=== PATIENT | female | born 1950 | race Two or more races ===

== ENCOUNTER → 2017-12-28 | Outpatient (CLI) | payer OTHER ==
[~2017-12-28] MED LIST: ASPI-1471 PO; ATOR-1 PO; ATOR40TA24 PO; ATOR40TA69 PO; CALC-734 PO; GLUC1TAB13 PO; METF500T4 PO; MULT-1121 PO; OMEG-36 PO; SULF-198 PO
== END ==
LOC: LAB 08:55
PROVIDERS: ATTEND Emergency Medicine
DX: E11.9 Type 2 diabetes mellitus without complications (principal)
CPT/HCPCS: 36415; 83036

== ENCOUNTER 2018-01-06 08:19 | Outpatient (RCR) | payer OTHER ==
[~2018-01-06 08:19] MED LIST changes: +BETA15OI20 TP
[2018-01-06 08:48] VITALS: BP 140/80
[2018-01-06 09:05] LABS: PLATELET COUNT, AUTOMATED 182 K/uL (150-450)
== END 2018-01-22 14:23 | disposition home or self-care (01) ==
LOC: SPU 08:19
PROVIDERS: ATTEND Internal Medicine
DX: C91.10 Chronic lymphocytic leukemia of B-cell type not having achieved remission (principal)
CPT/HCPCS: 36415; 82040; 82247; 82310; 82374; 82435; 82565; 82784; 82947; 83615; 84075; 84132; 84155; 84295; 84450; 84460; 84520; 85025

== ENCOUNTER 2018-05-17 10:19 | Outpatient (RCR) | payer OTHER ==
[2018-05-12 09:51] VITALS: BP 145/94
[2018-05-12 09:58] LABS: PLATELET COUNT, AUTOMATED 187 K/uL (150-450)
[2018-05-17 10:34] VITALS: BP 138/85
[2018-05-17] MEDS ORDERED: SIMV-54 PO (10:36)
--- NOTE | 2018-05-19 11:33 | [facility] ONCOLOGY NOTE ---
EVENT DATE: May 17, 2018 CHIEF COMPLAINT/REASON FOR VISIT Ms. Mancilla is a pleasant 67-year-old female with Stage 0 CLL with normal cytogenetics here for followup. HISTORY OF PRESENT ILLNESS Adilia returns. She was diagnosed with CLL in approximately 2014. FISH was done and showed normal cytogenetics. She continues to fell well with no significant fatigue. She has occasional episodes of shortness of breath that lasts a few seconds. These are rare and I am concerned that these are more related to a transient arrhythmia as opposed to anything to do with her CLL. No concerning lumps or bumps. No anemia, thrombocytopenia, renal failure, liver failure or any other issues. No indications for treatment. PAST MEDICAL/SURGICAL HISTORY 1. Type 2 diabetes. 2. CLL. FAMILY HISTORY Remarkable for liver failure in her father, diabetes in both parents, hypertension in her mother, breast cancer in her mother at a young age, as well as a distant family member with rectal cancer. REVIEW OF SYSTEMS CONSTITUTIONAL: No fevers, chills, weight change. HEENT: No headache or vision changes. CARDIOVASCULAR: No chest pain, dyspnea on exertion or edema. RESPIRATORY: No shortness of breath, wheeze, cough. GASTROINTESTINAL: No nausea, vomiting, diarrhea or constipation. GENITOURINARY: No dysuria or hematuria. MUSCULOSKELETAL: No weakness or joint pain. PSYCHIATRIC: No anxiety or depression. ENDOCRINE: No heat or cold intolerance. SKIN: No concerning lesions. LYMPHATIC: No concerning lumps or bumps. The remainder of the 14-point review of systems is otherwise negative. PHYSICAL EXAMINATION VITAL SIGNS: Blood pressure 138/85, pulse 63, respiratory rate 16, temperature 98.5 Fahrenheit, oxygen saturation 97% on room air. Weight 81.2 kg. Pain 0/10 , fatigue 0/10. GENERAL: Stable condition, resting comfortably in the chair. LYMPHATIC: No appreciable cervical, supraclavicular or axillary lymphadenopathy. CV: Regular rate and rhythm. LUNGS: Clear. ABDOMEN: Soft, nontender. No organomegaly or masses. EXTREMITIES: No clubbing, cyanosis or edema. SKIN: No concerning findings. The remainder of the physical exam is unremarkable. IMPRESSION AND PLAN Ms. Mccormick is a very pleasant 67-year-old female with the following: Chronic lymphocytic leukemia (CLL) Stage 0 with normal cytogenetics and FISH. No indication for treatment at this time. We discussed her labs, which show a slight increase in white count but no anemia or other indications for treatment. Her doubling time is still quite low. As such, it is very reasonable to watch her. She would like to be seen once a year with labs every six months and this is very reasonable. If she has any new issues, I am happy to see her sooner than originally planned. Billing: Return vitis level 4. Total time 30 minutes, counseling time 20. MTDD
== END 2018-05-21 09:52 | disposition home or self-care (01) ==
LOC: ONC 10:19
PROVIDERS: ATTEND Internal Medicine
DX: C91.10 Chronic lymphocytic leukemia of B-cell type not having achieved remission (principal)
CPT/HCPCS: 36415; 82040; 82247; 82310; 82374; 82435; 82565; 82784; 82947; 83615; 84075; 84132; 84155; 84295; 84450; 84460; 84520; 85025; 99212

== ENCOUNTER → 2018-06-03 | Outpatient (CLI) | payer OTHER ==
[~2018-06-03] MED LIST changes: +SIMV-54 PO
--- NOTE | 2018-06-04 08:39 | RADIOLOGY IMAGING REPORT ---
FACILITY: [facility] PATIENT NAME: JOYCE NEFF : [id number] MR: [id number] V: [id number] EXAM DATE: ORDERING PHYSICIAN: GREG TORRSE TECHNOLOGIST: Gissell Campuzano PROCEDURE:BILATERAL DIGITAL SCREENING MAMMOGRAM WITH CAD ASSISTED INTERPRETATION & 3D TOMOSYNTHESIS COMPARISON:Prior mammograms 05/20/17, 05/23/16. INDICATIONS:SCREENING FINDINGS: Small amount of fibroglandular tissue is seen throughout the breasts. The parenchymal pattern has remained stable allowing for difference in mammographic technique & patient positioning. There is no evidence of malignant appearing mass, malignant appearing calcifications or other secondary sign of malignancy in either breast. DIAGNOSTIC CATEGORY 1--NEGATIVE. RECOMMENDATIONS: ROUTINE MAMMOGRAM AND CLINICAL EVALUATION. IMPRESSION: BIRADS 1: Negative. No significant abnormality is seen. Dictated by: Kylie Johnson M.D. on 06/03/2018 at 15:22 Transcribed by: BRENDA on 06/03/2018 at 15:31 Approved by: Kylie Johnson M.D. on 06/04/2018 at 8:37 [facility]
== END ==
LOC: MAMO 01:19
PROVIDERS: ATTEND Emergency Medicine
DX: Z12.31 Encounter for screening mammogram for malignant neoplasm of breast (principal)
CPT/HCPCS: 77063; 77067

== ENCOUNTER → 2018-07-14 | Outpatient (CLI) | payer OTHER ==
[2018-07-14 09:42] LABS: LDL CHOLESTEROL 69 mg/dl
== END ==
LOC: LAB 09:13
PROVIDERS: ATTEND Emergency Medicine
DX: E11.9 Type 2 diabetes mellitus without complications (principal)
CPT/HCPCS: 36415; 82040; 82247; 82310; 82374; 82435; 82465; 82565; 82947; 83036; 83718; 84075; 84132; 84155; 84295; 84450; 84460; 84478; 84520

== ENCOUNTER → 2018-07-26 | Outpatient (CLI) | payer OTHER ==
[~2018-07-26] MED LIST changes: +PNEU0.5D3 IM
== END ==
LOC: LAB 09:09
PROVIDERS: ATTEND Emergency Medicine
DX: G62.9 Polyneuropathy, unspecified (principal)
CPT/HCPCS: 36415; 82607

== ENCOUNTER → 2018-08-04 | Outpatient (CLI) | payer OTHER ==
[~2018-08-04] VITALS: Ht 152.4 cm; Wt 80.7 kg
--- NOTE | 2018-08-04 16:27 | Medical Nutrition Therapy ---
Nutrition Anthropometrics Height (Inches): 60 (stated) Weight (Pounds): 178 (standing scale with shoes) BMI: 34.5 Darryn Nutrition Score: Darryn Nutrition Risk Score: Dietary Referral Nutrition Risk Factors: Nutrition Risk Comment: Nutrition/Food History Breakfast: egg/cheese, mcdaniel, fruit or dry cereal, cheese, fuit Lunch: sandwich, fruit Dinner: soup, chips, avocado, fruit, or veggies, meat, starch, fruit Nutritional Education Nutrition Education Topic: Diabetic Nutrition Learning Readiness: Interested Teaching Methods: Discussion, Handout, Demonstration Response to Teaching: Verbalize understanding Teaching Recipient: Patient Nutrition Counseling: Pt unsure if she is pre-diabetes or diabetes. Recommend pt discuss this with PCP. At A1c of 6.4, she is in good control however pt would like to maintain A1C within the prediabetes range. Pt provided 2 day intake record. Est pt is consuming ~ 2000 kcal/day which will maintain her wt but is not a wt loss level. Explained that studies have shown that wt loss and exercise will usually help lower A1`C. Asked pt if she was interested in a lower kcal meal plan that would help with wt loss. Pt stated she was. Reviewed glycemic response to CHO, food exchange group, CHO counting and plate method. Recommend pt keep CHO to 1c/meal or 30-45gm CHO to help with wt loss. Pt exercises 3X/wk. Encouraged pt to increase exercise to minimum of 150 minutes/wk. Invited pt to diabetic classes but pt declined at this time. Pt declined f/u session. Nutrition Monitoring & Eval RD Patient Assessment Time: [address] Assessment Type: RD Education Nutritional Comment: provided 60 minutes MNT for dx diabetes Copies To Copies to: GREG TORRES MD ; [place] Aug 04, 2018 16:27
== END ==
LOC: DIET 09:33
PROVIDERS: ATTEND Emergency Medicine
DX: Z71.3 Dietary counseling and surveillance (principal); Z68.34 Body mass index [BMI] 34.0-34.9, adult
CPT/HCPCS: 97802

== ENCOUNTER 2018-11-01 09:00 | Outpatient (RCR) | payer OTHER ==
[2018-11-01 09:19] LABS: PLATELET COUNT, AUTOMATED 184 K/uL (150-450)
[2018-11-01 09:57] VITALS: BP 127/86
== END 2018-11-15 15:42 | disposition home or self-care (01) ==
LOC: SPU 09:00
PROVIDERS: ATTEND Internal Medicine
DX: C91.10 Chronic lymphocytic leukemia of B-cell type not having achieved remission (principal)
CPT/HCPCS: 36415; 82040; 82247; 82310; 82374; 82435; 82565; 82784; 82947; 83615; 84075; 84132; 84155; 84295; 84450; 84460; 84520; 85025

== ENCOUNTER → 2019-01-24 | Outpatient (CLI) | payer OTHER | LOC: LAB 08:57 | PROVIDERS: ATTEND Emergency Medicine | DX: E11.9 Type 2 diabetes mellitus without complications (principal) | CPT/HCPCS: 36415; 83036 ==

== ENCOUNTER → 2019-06-15 | Outpatient (CLI) | payer OTHER ==
--- NOTE | 2019-06-15 14:05 | RADIOLOGY IMAGING REPORT ---
FACILITY: [facility] PATIENT NAME: JOYCE NEFF : [id number] MR: [id number] V: [id number] EXAM DATE: ORDERING PHYSICIAN: GREG TORRES TECHNOLOGIST: Betzy Ahumada PROCEDURE: BILATERAL DIGITAL SCREENING MAMMOGRAM WITH CAD ASSISTED INTERPRETATION & 3D TOMOSYNTHESIS REASON FOR STUDY: Screening. COMPARISON: 06/03/18, 05/20/17, 05/23/16. VIEWS OBTAINED: Bilateral 2D & 3D full field CC & MLO projections. BREAST DENSITY: The breast parenchyma is predominantly fatty replaced. MAMMOGRAM FINDINGS: Stable less than 4mm benign appearing mass in the 4 o'clock position of the Right breast at middle depth. No new mammographic finding concerning for malignancy on either side. IMPRESSION: BIRADS 2: Benign finding. DIAGNOSTIC CATEGORY 2--BENIGN FINDING. RECOMMENDATIONS: ROUTINE MAMMOGRAM IN 1YR AND CLINICAL EVALUATION. Dictated by: Jerome Mejia on 06/15/2019 at 11:59 Transcribed by: BRENDA on 06/15/2019 at 13:49 Approved by: Jerome Mejia on 06/15/2019 at 13:59 [facility]
== END ==
LOC: MAMO 07:38
PROVIDERS: ATTEND Emergency Medicine
DX: Z12.31 Encounter for screening mammogram for malignant neoplasm of breast (principal)
CPT/HCPCS: 77063; 77067